=== PATIENT | female | born 1960 | race Two or more races ===

== ENCOUNTER 2024-05-07 10:10 | Emergency (ER) | payer OTHER ==
[~2024-05-07] VITALS: Ht 154.9 cm; Wt 68.0 kg
[~2024-05-07 10:10] MED LIST: SYNTHROID100 MCG
[2024-05-07] MEDS ORDERED: DEXAMETHASONE SODIUM PHOSPHATE 4 MG/ML VIAL IM STA (11:24)
[2024-05-07] MEDS ORDERED: ACETAMINOPHEN 500 MG GEL..CAP PO STA (11:24)
[2024-05-07] MEDS ORDERED: CLINDAMYCIN PHOSPHATE 150 MG/ML (300mg) IM STA (11:25)
[2024-05-07 11:56] LABS: HEMATOCRIT 37.4 % (36.0-45.00); HEMOGLOBIN 12.8 g/dL (12.0-15.00); MEAN CELL VOLUME 89.5 fL (80.00-100.00); MEAN CORPUSCULAR HEMOGLOBIN 30.8 pg (27.00-32.0); MEAN CORPUSCULAR HGB CONC 34.4 g/dl (32.0-36.0); PLATELET COUNT 376 K/uL (150-450); RED BLOOD COUNT 4.18 M/uL (4.00-6.00); RED CELL DISTRIBUTION WIDTH 13.6 % (11.5-14.5)
[2024-05-07] MEDS ORDERED: CLEOCIN HCL300 MG PO (12:25)
[2024-05-07] MEDS ORDERED: ACETAMINOPHEN500 M1 PO (12:25)
== END 2024-05-07 14:45 | disposition home or self-care (01) ==
LOC: ER 10:12
PROVIDERS: General Practice
DX: H66.91 Otitis media, unspecified, right ear (principal); E03.9 Hypothyroidism, unspecified; Z88.6 Allergy status to analgesic agent; Z88.0 Allergy status to penicillin